=== PATIENT | female | born 1940 | race Caucasian/White ===

== ENCOUNTER → 2016-07-11 16:50 | Outpatient (CLI) | payer MEDICARE, OTHER ==
[2014-09-15 08:16] VITALS: BMI 21.8
[~2016-07-11 16:50] MED LIST: COMBIGAN OPHT DR5 ML EACH EYE; LISINOPRIL10 MG PO; MULTIPLE VITAMI1 TA1 PO; NAPROSYN500 MG PO; OS-CAL 500+D TA1 TAB PO; PRILOSEC20 MG PO; PROBIOTIC1 EAC1 PO; SAM-E PO
== END | disposition home or self-care (01) ==
LOC: D.MAMMO 09:30
DX: Z12.31 Encounter for screening mammogram for malignant neoplasm of breast (principal)

== ENCOUNTER → 2017-08-06 16:44 | Outpatient (CLI) | payer MEDICARE, OTHER ==
[2014-09-15 08:16] VITALS: BMI 21.8
== END | disposition home or self-care (01) ==
LOC: D.MAMMO 14:30
DX: Z12.31 Encounter for screening mammogram for malignant neoplasm of breast (principal)

== ENCOUNTER → 2018-08-07 16:24 | Outpatient (CLI) | payer MEDICARE, OTHER ==
[2014-09-15 08:16] VITALS: BMI 21.8
== END | disposition home or self-care (01) ==
LOC: D.MAMMO 09:30
DX: Z12.31 Encounter for screening mammogram for malignant neoplasm of breast (principal)

== ENCOUNTER 2019-11-24 19:00 | Outpatient (CLI) | payer MEDICARE, OTHER ==
[2014-09-15 08:16] VITALS: BMI 21.8
== END 2019-11-24 23:59 | disposition home or self-care (01) ==
LOC: D.MAMMO 19:00
PROVIDERS: ATTEND Internal Medicine
DX: Z12.31 Encounter for screening mammogram for malignant neoplasm of breast (principal)